=== PATIENT | female | born 1965 | race Caucasian/White ===

== ENCOUNTER 2017-09-27 08:57 | Emergency (ER) | payer MEDICARE, OTHER ==
[~2017-09-27] VITALS: Ht 157.5 cm; Wt 52.2 kg
[2017-09-27] MEDS ORDERED: IV NORMAL SALINE 1000 ML BAG IV ONE (09:15)
--- NOTE | 2017-09-27 09:25 | NUR ---
Patient walked in to ER c/o sore throat for several days. Patient is A/O x4, ambulatory, no acute distress at this time. To room 4A, [facility] performed MSE.
--- NOTE | 2017-09-27 09:30 | NUR ---
Patient requesting to speak to ERMD. States "I have to go, I just want an antibiotic." Education performed regarding ABX and MD need to evaluate infection.
--- NOTE | 2017-09-27 09:35 | NUR ---
Patient exited the room stating "can you take this out of my arm, I'm just going to go to urgent care." IV removed. Catheter intact and site benign. Pressure and 4x4 gauze applied to site. No bleeding noted.
[2017-09-27] MEDS ORDERED: IBUPROFEN 800 MG TABLET PO ONE (09:45)
[2017-09-27] MEDS ORDERED: IBUPROFEN 800 MG TABLET ONE (09:49)
--- NOTE | 2017-09-27 09:52 | NUR ---
Patient discharged to home in stable conditon. Written and verbal after care instructions given. Patient verbalizes understanding of instructions.
== END 2017-09-27 09:55 | disposition home or self-care (01) ==
LOC: ER 09:01
DX: K04.7 Periapical abscess without sinus (principal); F17.210 Nicotine dependence, cigarettes, uncomplicated
CPT/HCPCS: 36415; A4663; J7030

== ENCOUNTER 2018-04-09 15:30 | Emergency (ER) | payer OTHER ==
[~2018-04-09] VITALS: Ht 157.5 cm; Wt 56.7 kg
[2018-04-09] MEDS ORDERED: ONDANSETRON 4 MG/2 ML VIAL ONE ×2 (15:43→15:52)
[2018-04-09] MEDS ORDERED: IV NORMAL SALINE 1000 ML BAG IV ONE (15:45)
[2018-04-09] MEDS ORDERED: CLONIDINE HCL 0.1 MG TABLET PO ONE (15:45)
[2018-04-09] MEDS ORDERED: ONDANSETRON 4 MG/2 ML VIAL IV ONE (15:45)
[2018-04-09 15:47] LABS: BASOPHILS # (AUTO) 0.1 K/uL (0.0-8.0); BASOPHILS % (AUTO) 0.8 % (0.0-2.0); EOSINOPHILS # (AUTO) 0.1 K/uL (0.0-0.7); EOSINOPHILS % (AUTO) 1.4 % (0.0-7.0); HEMATOCRIT 40.5 % (31.2-41.9); HEMOGLOBIN 13.8 g/dL (10.9-14.3); LYMPHOCYTES # (AUTO) 3.3 K/uL (20.0-40.0); LYMPHOCYTES % (AUTO) 35.8 % (20.5-51.5); MEAN CORPUSCULAR HEMOGLOBIN 29.3 uug (24.7-32.8); MEAN CORPUSCULAR HGB CONC 34 g/dL (32.3-35.6); MEAN CORPUSCULAR VOLUME 85.8 fL (75.5-95.3); MONOCYTES # (AUTO) 0.6 K/uL (2.0-10.0); MONOCYTES % (AUTO) 6.5 % (0.0-11.0); NEUTROPHILS % (AUTO) 55.5 % (38.5-71.5); PLATELET COUNT (AUTO) 338 K/uL (179-408); RED BLOOD CELL COUNT(AUTO) 4.71 MIL/uL (3.63-4.92); WHITE BLOOD COUNT (AUTO) 9.1 K/uL (3.8-11.8)
[2018-04-09] MEDS ORDERED: CLONIDINE HCL 0.1 MG TABLET ONE (15:53)
[2018-04-09 15:55] LABS: CREATININE 0.9 mg/dL (0.6-1.3)
[2018-04-09 16:01] LABS: BILIRUBIN,DIRECT 0.1 mg/dL (0.0-0.2); BILIRUBIN,TOTAL 0.4 mg/dL (0.2-1.0)
[2018-04-09 16:35] LABS: *BILIRUBIN,URIN NEGATIVE (NEGATIVE); *BLOOD, URINE NEGATIVE (NEGATIVE); *CLARITY,URINE CLEAR (CLEAR); *COLOR,URINE YELLOW (YELLOW); *KETONES,URINE NEGATIVE (NEGATIVE); *PROTEIN,URINE NEGATIVE (NEGATIVE); *UROBILINOGEN,URINE 0.2 E.U./dl (NORMAL); LEUKOCYTE ESTERASE ,URINE NEGATIVE (NEGATIVE); NITRITE, URINE NEGATIVE (NEGATIVE); PH,URINE 7.5 (5.0-8.0); UGLUCOSE NEGATIVE (NEGATIVE)
--- NOTE | 2018-04-09 17:18 | NUR ---
Patient discharged to home in stable conditon. Written and verbal after care instructions given. Patient verbalizes understanding of instructions.pt walks in steady gait. pt says fels better. pt using uber to go home.
[2018-04-09 17:20] VITALS: BP 122/76
[2018-04-09 17:25] LABS: *AMPHETAMINE, URINE NEGATIVE (NEGATIVE); *BARBITURATE, URINE NEGATIVE (NEGATIVE); *CANNABINOID, URINE NEGATIVE (NEGATIVE); *COCCAINE, URINE NEGATIVE (NEGATIVE); *OPIATE, URINE NEGATIVE (NEGATIVE); *PHENCYCLIDINE SCREEN,URINE NEGATIVE (NEGATIVE)
== END 2018-04-09 17:21 | disposition home or self-care (01) ==
LOC: ER 15:30
DX: F41.0 Panic disorder [episodic paroxysmal anxiety] (principal); R20.2 Paresthesia of skin; F17.200 Nicotine dependence, unspecified, uncomplicated
CPT/HCPCS: 36415; 71045; 80048; 80076; 80307; 81001; 84484; 85025; 87086; 93005; 96361; 96374; 99285; J2405 ×2; 70030-TC; A4663; J7030

== ENCOUNTER 2018-05-08 16:23 | Emergency (ER) | payer OTHER ==
[~2018-05-08] VITALS: Ht 160 cm; Wt 54.4 kg
[2018-05-08] MEDS ORDERED: SERT100T PO (16:35)
[2018-05-08] MEDS ORDERED: BUSP10TA3 PO (16:35)
[2018-05-08] MEDS ORDERED: PROP10TA10 PO (16:35)
--- NOTE | 2018-05-08 16:40 | NUR ---
PATIENT WAS MSE BY DR BOWENS IN ROOM 03A.
[2018-05-08] MEDS ORDERED: PANTOPRAZOLE SODIUM 40 MG VIAL IV ONE (16:45)
[2018-05-08] MEDS ORDERED: MORPHINE SULFATE 2 MG/1 ML DISP.SYRIN IV ONE (16:45)
[2018-05-08] MEDS ORDERED: IV NORMAL SALINE 1000 ML BAG IV ONE (16:45)
[2018-05-08] MEDS ORDERED: ONDANSETRON 4 MG/2 ML VIAL IV ONE (16:45)
[2018-05-08] MEDS ORDERED: PANTOPRAZOLE SODIUM 40 MG VIAL ONE (16:51)
[2018-05-08] MEDS ORDERED: ONDANSETRON 4 MG/2 ML VIAL ONE (16:51)
[2018-05-08] MEDS ORDERED: MORPHINE SULFATE 2 MG/1 ML DISP.SYRIN ONE (16:52)
[2018-05-08] MEDS ORDERED: KETOROLAC TROMETHAMINE 30 MG INJ ONE (17:02)
[2018-05-08 17:06] LABS: BASOPHILS # (AUTO) 0.1 K/uL (0.0-8.0); BASOPHILS % (AUTO) 1.2 % (0.0-2.0); EOSINOPHILS # (AUTO) 0.2 K/uL (0.0-0.7); EOSINOPHILS % (AUTO) 3.6 % (0.0-7.0); HEMATOCRIT 35.7 % (31.2-41.9); HEMOGLOBIN 12.4 g/dL (10.9-14.3); LYMPHOCYTES # (AUTO) 1.7 K/uL (20.0-40.0); LYMPHOCYTES % (AUTO) 35.2 % (20.5-51.5); MEAN CORPUSCULAR HEMOGLOBIN 29.9 uug (24.7-32.8); MEAN CORPUSCULAR HGB CONC 35 g/dL (32.3-35.6); MEAN CORPUSCULAR VOLUME 86.4 fL (75.5-95.3); MONOCYTES # (AUTO) 0.4 K/uL (2.0-10.0); MONOCYTES % (AUTO) 8.6 % (0.0-11.0); NEUTROPHILS # (AUTO) 2.5 K/uL (1.8-8.9); NEUTROPHILS % (AUTO) 51.4 % (38.5-71.5); PLATELET COUNT (AUTO) 250 K/uL (179-408); RED BLOOD CELL COUNT(AUTO) 4.13 MIL/uL (3.63-4.92); WHITE BLOOD COUNT (AUTO) 4.8 K/uL (3.8-11.8)
[2018-05-08] MEDS ORDERED: KETOROLAC TROMETHAMINE 30 MG INJ IVP ONE (17:08)
[2018-05-08 17:11] LABS: CREATININE 0.9 mg/dL (0.6-1.3); POTASSIUM 3.8 mmol/L (3.5-5.1)
[2018-05-08 17:17] LABS: BILIRUBIN,DIRECT 0.1 mg/dL (0.0-0.2); BILIRUBIN,TOTAL 0.3 mg/dL (0.2-1.0); TOTAL PROTEIN, SERUM 6.9 g/dL (6.4-8.2)
--- NOTE | 2018-05-08 18:43 | NUR ---
Patient discharged to home in stable conditon. Written and verbal after care instructions given. Patient verbalizes understanding of instructions. Patient took own [employer] ride.
[2018-05-08 18:45] VITALS: BP 110/78
== END 2018-05-08 18:49 | disposition home or self-care (01) ==
LOC: ER 16:25
DX: K82.4 Cholesterolosis of gallbladder (principal); F17.200 Nicotine dependence, unspecified, uncomplicated; Z79.899 Other long term (current) drug therapy
CPT/HCPCS: 36415; 76705; 80048; 80076; 83690; 85025; 93005; 96361; 96374; 96375; 99284; C9113; J1885; J2405; A4663; J2270; J7030